=== PATIENT | female | born 1950 | race Caucasian/White ===

== ENCOUNTER → 2016-08-20 | Day surgery (SDC) | payer BC, MEDICARE ==
[2016-07-02 04:17] VITALS: BMI 26.1
[~2016-08-20] MED LIST: BUPIVACAINE 0.5% 30 ML VIAL ONE; Clindamycin 600 mg/D5W 50 ml 600 MG/50 ML IVB IV ONE; FENTANYL 100 MCG/2 ML VIAL IV ONE; FENTANYL 100 MCG/2 ML VIAL IV PRN; HYDROmorphone 1 MG INJECTION IV PRN; LABETALOL 20 MG/4 ML SYRINGE IV PRN; LIDOCAINE 1% 30 ML VIAL (PRESERVATIVE FREE) ONE; LIDOCAINE 100 MG PFS IV ONE; MEPERIDINE 25 MG/ML TUBEX IV PRN; MIDAZOLAM 2 MG/2 ML VIAL IV ONE; ONDANSETRON HCL 4 MG ODT TAB PO PRN; ONDANSETRON HCL 4 MG/2 ML VIAL IV PRN; PROMETHAZINE 25 MG/ML VIAL IV PRN; PROPOFOL 200 MG/20 ML VIAL IV ONE; hydrALAZINE 20 MG/ML VIAL IV PRN
--- NOTE | 2016-08-20 06:58 | SC.ANESPOS ---
[id number], Hemodynamically Stable, Pain Control Adequate Phase I & II Recovery Complete: Yes Apparent Anesthesia Complication: No : N - Vital Signs Blood Pressure: 114/55 Pulse: 80 Resp Rate: 18 O2 Sat: 94 Temp: 97.0 F
--- NOTE | 2016-08-20 07:05 | HIM.ANES ---
Anesthesia Evaluation & Plan Diagnoses: ENCOUNTER FOR ADJUSTMENT AND MANAGEMENT OF VAD (08/20/16) Consented Procedure: PORT REMOVAL - Focused Review of Systems Cardiac History: Yes: Hx Cardiac Catheterization (1997), Hx Afib/Aflutter (1997 RESOLVED), Hx Cardiac Disorders HEENT: Yes: Hx Vision Problem (GLASSES), Other HEENT Problems Hx Other HEENT Problems: ALLERGIC RHINNITIS Respiratory: Yes: Hx Pneumonia (07/07/2016) Gastrointestinal: Yes: Hx Colonoscopy (2014) No: Hx Gastroesophageal Reflux Disease, Hx Gastrointestinal Disorders Neurological/Musculoskeletal: Yes: Hx Migraine, Hx Numbness, Tingling, Weakness in Arms & Legs (feet), Hx Neurological Disorders Other Neurological Problems: PERIPHERAL NEUROPATHY Psychological: Yes Hx Depression, No Hx Mental/Emotional Disorders Blood/Autoimmune: No: Hx Blood Transfusions, Hx AIDS, Hx Hepatitis (type) Smoking Status: Heavy tobacco smoker (5 or more cigarettes/day or daily pipe/ cigar) Past Social History: Denies: Substance Use Disorder Surgical History: Yes: Appendectomy, Cholecystectomy (2008), Other (Modified right radical mastectomy 2011) Other Surgical History: C SECTION 1979 - Focused Physical Exam NPO since: 2199 Mallampati: Class III Thyromental Distance: Greater than 3 Neck: Full Range of Motion Dental: Removable Dental Work Cardiovascular/Chest: Normal Any problems with anesthesia, including nausea and vomiting?: No (HARD TO WAKE UP..SINUS BRADYCARDIA) Any relatives with a history of Malignant Hyperthermia?: No Beta Arthur given (if appropriate): N/A Does the patient have a history of Motion Sickness-: No Other: Problem List Problem Status Onset Bronchitis, acute, with bronchospasm Acute Migraine Acute Respiratory insufficiency Acute Cancer of right breast, stage 2 Chronic Pneumonia Chronic Tobacco abuse Chronic Allergies Allergy/AdvReac Type Severity Reaction Status Date / Time gatifloxacin [From Tequin] Allergy Rash-Locali Verified 08/20/16 06:49 zed heparin Allergy Anaphylaxis Verified 08/20/16 06:49 * Iodinated Contrast Media - Allergy Unknown/See Verified 08/20/16 06:49 IV Dye Comments Penicillins Allergy Hives* Verified 08/20/16 06:49 Home Medications Medication Instructions Recorded Last Taken Type Albuterol/Ipratropium Neb [Duoneb] 3 ml NEB RTQ6 #120 nebu 07/02/16 08/20/16 05: 00 Rx Tiotropium [place] [Spiriva] 18 mcg INH DAILY #1 07/02/16 Unknown Rx Ibuprofen 200 - 600 mg PO Q6 PRN 08/19/16 Unknown History Height and Weight Patient's height 5 ft 7 in Patient's weight 166 lb 9 oz BMI 26.1 Vital Signs Temperature 97.0 F L 08/20/16 06:58 Pulse Rate 80 08/20/16 06:58 Respiratory Rate 18 08/20/16 06:58 Blood Pressure 114/55 L 08/20/16 06:58 Pulse Oxygen Saturation 94 08/20/16 06:58 - Anesthetic Plan Anesthesia Type: General, MAC ASA Class: 3 -: I have examined this patient and reviewed the medical record. The patient has been assessed prior to anesthesia. Risks and benefits of anesthesia and anesthetic technique options have been discussed and all questions answered. The patient accepts the risk and desires me to proceed with the planned anesthetic.
--- NOTE | 2016-08-20 07:37 | HIMOPRPT ---
DATE OF PROCEDURE: 08/20/16 PREOPERATIVE DIAGNOSIS: Encounter for management/adjustment of vascular device POSTOPERATIVE DIAGNOSIS: Same PROCEDURE: Port removal. SURGEON: James Cho MD ANESTHESIA: Local MAC. COMPLICATIONS: None. SPECIMENS: Port was removed and discarded. CHEST X-RAY: Pending. PACKINGS AND DRAINS: None BLOOD LOSS: None OPERATIVE FINDING AND TECHNIQUE: With consent, the patient was brought to the operative suite, placed in supine position. Following IV sedation, the left chest was prepped and draped in usual fashion. Combination of 1% Xylocaine and 0.5% Marcaine was injected locally. Skin incision was made. Port was identified. Anchoring sutures were removed. The port was removed with the catheter tip completely intact. Port was passed off and discarded. Pressure was held assuring hemostasis. Wound was irrigated and dried. Deep tissue was reapproximated using 3 0 Vicryl suture. Skin approximation was accomplished using 4-0 Monocryl in subcuticular fashion. Dermabond, 2 x 2 gauze, and Tegaderm dressing were applied to the wound. The patient tolerated the procedure well with the findings as described. There were no pathologic specimens.
[2016-08-20 17:37] VITALS: BP 114/55; PULSE 80; TEMP 97
== END ==
LOC: SDC 06:01
PROVIDERS: ATTEND Surgery Vascular Surgery
PROC: 0JPT0XZ Removal of Tunneled Vascular Access Device from Trunk Subcutaneous Tissue and Fascia, Open Approach (ICD-10-PCS; principal; 2016-08-20 07:15)
DX: Z45.2 Encounter for adjustment and management of vascular access device (principal); G43.909 Migraine, unspecified, not intractable, without status migrainosus; F32.9 Major depressive disorder, single episode, unspecified; F17.210 Nicotine dependence, cigarettes, uncomplicated; M19.90 Unspecified osteoarthritis, unspecified site; Z90.49 Acquired absence of other specified parts of digestive tract; Z85.3 Personal history of malignant neoplasm of breast
CPT/HCPCS: 36590; A9270; J2001; J2550; J3010; J3490; J2250